=== PATIENT | female | born 1980 | race Hispanic/Latino ===

== ENCOUNTER → 2016-02-23 | Outpatient (CLI) | payer OTHER ==
--- NOTE | 2016-02-24 13:58 | DI ---
History: Second trimester obstetrical check. Prior study 12/07/15 Findings: Amniotic fluid volume appears adequate. age parameters based on BPD, HC, a.c., FL on close agreement, aggregate 20 weeks 2 days, by jory es, 20 weeks 4 days recorded. heart rate 147 beats per minute. Estimated weight 341 g, 20th percentile. Presentation is transverse, maternal left side. Placenta is posterior and somewhat low in position. No overt evidence of previa identified, however. Cervical length 8.2 cm per the internal cervical os and endocervical canal is visualized. The anatomy shows normal calvaria, no evidence of ventriculomegaly. No evidence of nuchal thick ening is seen. The spine appears normal. Heart appears normal. The liver, kidneys, are normal without ascites or ventral wall abnormality. Extremities are unremark able to extent depicted. Normal three-vessel cord with normal insertion site. Normal appearing face without visible evidence of cleft palate. Impression: Placenta is posteriorly oriented without previa or abruption. The lowest cotyledon is in close proximity to the internal cervical os and may be checked again after 4-6 weeks. age parameters close agreement at 20 weeks 2 days. Other details mentioned above
== END ==
LOC: US 08:51
PROVIDERS: ATTEND Student in an Organized Health Care Education/Training Program
DX: Z36 Encounter for antenatal screening of mother (principal); Z34.82 Encounter for supervision of other normal pregnancy, second trimester; Z3A.20 20 weeks gestation of pregnancy
CPT/HCPCS: 76805

== ENCOUNTER → 2016-04-18 | Outpatient (CLI) | payer OTHER ==
[2016-04-18 09:14] LABS: BASOPHILS # (AUTO) 0.02 10*3/UL; BASOPHILS % (AUTO) 0.3 % (0-1); EOSINOPHILS % (AUTO) 0.4 % (0-8); HEMATOCRIT 35.4 % (37.0-47.0); HEMOGLOBIN 11.8 g/dL (12.0-16.0); IMM GRAN % (AUTO) 0.1 % (0-5); IMM GRAN# (AUTO) 0.01 10*3/UL; LYMPHOCYTES # (AUTO) 1.47 10*3/uL; LYMPHOCYTES % (AUTO) 18.8 % (10-50); MEAN CORPUSCULAR HEMOGLOBIN 29.9 PG (27-31); MEAN CORPUSCULAR HGB CONC 33.3 g/dL (33-37); MEAN PLATELET VOLUME 9.5 FL (7.4-12.2); MONOCYTES # (AUTO) 0.27 10*3/UL (0.3-0.8); MONOCYTES % (AUTO) 3.5 % (5-15); NEUTROPHILS # (AUTO) 6.01 10*3/UL; NEUTROPHILS % (AUTO) 76.9 % (50-80); RDW COEFFICIENT OF VARIATION 14.1 % (11.5-14.5); RED BLOOD COUNT 3.95 10^6/uL (4.20-5.40); WHITE BLOOD COUNT 7.81 10^3/uL (4.8-10.8)
[2016-04-18 09:18] LABS: PLATELET MORPHOLOGY COMMENT NORMAL MORPHOLOGY (NORM)
== END ==
LOC: LAB 07:58
PROVIDERS: ATTEND Student in an Organized Health Care Education/Training Program
DX: Z34.93 Encounter for supervision of normal pregnancy, unspecified, third trimester (principal); Z3A.28 28 weeks gestation of pregnancy
CPT/HCPCS: 36415; 82950; 85025

== ENCOUNTER → 2016-05-10 | Outpatient (CLI) | payer OTHER ==
--- NOTE | 2016-05-10 12:09 | DI ---
US OB , LIMITED,05/10/2016 8:28 AM: Clinical History: Low lying placenta. Previous Exam: February 23, 2016 Findings: Multiple grayscale and color Doppler sonographic images are obtained through the pelvis demonstrating a single live intrauterine gestation in vertex presentation. Amniotic fluid level is normal subjecti vely. The placenta is posterior and grade 1. The cervix is long and closed measuring 5.7 cm in length. The placenta is approximately 1.2 cm from the internal cervical os. Detected Doppler heart tones measured 147 beats per minute. Impression: 1. The placenta is still marginal lying approximately 1.2 cm from the internal cervical os.
== END ==
LOC: US 08:26
PROVIDERS: ATTEND Student in an Organized Health Care Education/Training Program
DX: O44.43 Low lying placenta NOS or without hemorrhage, third trimester (principal); Z3A.31 31 weeks gestation of pregnancy
CPT/HCPCS: 76815

== ENCOUNTER → 2016-06-14 | Outpatient (CLI) | payer OTHER | LOC: MOB LAB 08:50 | PROVIDERS: ATTEND Student in an Organized Health Care Education/Training Program | DX: Z36 Encounter for antenatal screening of mother (principal); Z3A.36 36 weeks gestation of pregnancy | CPT/HCPCS: 87150 ==

== ENCOUNTER → 2016-06-24 | Outpatient (CLI) | payer OTHER ==
--- NOTE | 2016-06-27 13:37 | DI ---
US OB , LIMITED,06/24/2016 9:58 AM: Clinical History: Uterine size/date discrepancy. Previous Exam: May 10, 2016 Findings: Multiple grayscale and color Doppler sonographic images are obtained through the pelvis demonstrating a single live intrauterine gestation in vertex presentation. Amniotic fluid level is normal (14.1 cm ). There is spontaneous motion identified. Detected Doppler heart tones measure 144 beats per minute. There is normal respiratory motion. The umbilical artery Dopplers demonstrate SD ratios of between 2.4 and 2.9. Estimated gestational age was determined by a composite of biparietal diameter, head circumference, a bdominal circumference, and femur length yielding an estimated gestational age by ultrasound of 34 we eks 6 days. The biparietal diameter, head circumference and femur length are all less than the 2nd pe rcentile. Estimated weight is 2555 g (6 percentile). Impression: Single live intrauterine gestation with size less than dates. Growth rate has decreased since the exa mination on February 23, 2016.
== END ==
LOC: US 09:55
PROVIDERS: ATTEND Student in an Organized Health Care Education/Training Program
DX: O26.843 Uterine size-date discrepancy, third trimester (principal); Z3A.37 37 weeks gestation of pregnancy
CPT/HCPCS: 76815

== ENCOUNTER 2016-06-27 10:39 | Outpatient (CLI) | payer OTHER ==
[2016-06-27 15:15] VITALS: RESP 18; TEMP 98.7
--- NOTE | 2016-06-28 09:05 | PDOC(PROG) ---
Intake - - Reason for Visit/Chief Complaint: NST Admitted From: Home - Estimated Due Date: 07/09/16 Gestational Age in Weeks and Days: 38 Weeks and 3 Days Maternal - Vital Signs Last Taken Vital Signs: Vital Signs - Last Taken Temperature 98.7 F 06/27/16 11:00 Pulse Rate 69 06/27/16 11:00 Respiratory Rate 18 06/27/16 11:00 Blood Pressure 114/64 06/27/16 11:00 Pulse Ox 98 06/27/16 11:00 - Uterine Activity Uterine Contraction Monitor Mode: External Contraction Frequency(minutes): x2 Contraction Duration (seconds): 70 Uterine Contraction Pattern: Irregular Uterine Tone Measurement Phase: Resting Uterine Contraction Intensity: Mild - Vaginal Discharge Vaginal Bleeding Amount: None Vaginal Discharge Amount: Small Vaginal Discharge Odor: Odorless Vaginal Itching: No Monitoring - Uterine Activity Uterine Contraction Monitor Mode: External Contraction Frequency(minutes): x2 Contraction Duration (seconds): 70 Uterine Contraction Pattern: Irregular Uterine Tone Measurement Phase: Resting Uterine Contraction Intensity: Mild Assessment and Plan - Patient Problems (1) IUGR (intrauterine growth restriction) Status: AcuteSupport Text: U/s on Monday revealed EFW 6%ile, normal CARROLL, normal cord dopplers. NST reactive today Plan to repeat CARROLL, cord dopplers, NST on Monday Plan for IOL at 39 weeks
== END 2016-06-27 12:00 | disposition home or self-care (01) ==
LOC: OBOP 10:39
PROVIDERS: ATTEND Student in an Organized Health Care Education/Training Program
DX: O36.5930 Maternal care for other known or suspected poor fetal growth, third trimester, not applicable or unspecified (principal); Z3A.38 38 weeks gestation of pregnancy
CPT/HCPCS: 59025; 99211

== ENCOUNTER 2016-07-03 16:50 | Inpatient (IN) | payer OTHER ==
[2016-07-03] MEDS ORDERED: CALCIUM CARBONATE 500 MG (TUMS) CHEWABLE TABLET PO PRN (19:38)
[2016-07-03] MEDS ORDERED: LIDOCAINE W/ SODIUM BICARB 0.5 ML SYR SUBD PRN (19:38)
[2016-07-03] MEDS ORDERED: Carboprost Inj 250 MCG/ML AMP IM PRN (19:38)
[2016-07-03] MEDS ORDERED: NALOXONE 0.4 MG/1 ML VIAL IVP PRN (19:38)
[2016-07-03] MEDS ORDERED: Metoclopramide Inj 10 MG/2 ML VIAL IV PRN (19:38)
[2016-07-03] MEDS ORDERED: TERBUTALINE SULFATE 1 MG/1 ML SDV SUBCUT PRN (19:38)
[2016-07-03] MEDS ORDERED: Phenylephrine Inj 50 MCG in Normal Saline Flush 0.5 ML IVP PRN (19:38)
[2016-07-03] MEDS ORDERED: METHYLERGONOVINE MALEATE 0.2 MG/1 ML VIAL IM PRN (19:38)
[2016-07-03] MEDS ORDERED: MISOPROSTOL 200 MCG TABLET RECTAL PRN (19:38)
[2016-07-03] MEDS ORDERED: Naloxone Inj 0.01 MG in Normal Saline Flush 1 ML IVP PRN (19:38)
[2016-07-03] MEDS ORDERED: CefOXitin Inj 2 GM in Sodium Chloride 0.9% 100 ML IV PRN (19:38)
[2016-07-03] MEDS ORDERED: Famotidine Inj 20 MG in Normal Saline Flush 10 ML IVP PRN ×4 (19:38)
[2016-07-03] MEDS ORDERED: ONDANSETRON 4 MG/2 ML VIAL IVP PRN (19:38)
[2016-07-03] MEDS ORDERED: diphenhydrAMINE 50 MG/1 ML VIAL IVP PRN (19:38)
[2016-07-03] MEDS ORDERED: CITRIC ACID/SODIUM CITRATE 30 ML CUP PO PRN (19:38)
[2016-07-03] MEDS ORDERED: Nalbuphine Inj 20 MG/ML Ampule IVP PRN (19:38)
[2016-07-03] MEDS ORDERED: NORMAL SALINE 10 ML SYRINGE FLUSH IVP PRN (19:38)
[2016-07-03] MEDS ORDERED: OXYTOCIN 10 UNIT/1 ML IM PRN (19:38)
[2016-07-03] MEDS ORDERED: BUTORPHANOL TARTRATE 2 MG/1 ML VIAL IVP PRN (19:38)
[2016-07-03] MEDS ORDERED: Lidocaine 1% 10 MG/ML - 20 ML VIAL SUBCUT PRN (19:38)
[2016-07-03] MEDS ORDERED: ePHEDrine Inj 5 MG in Normal Saline Flush 1 ML IVP PRN (19:38)
[2016-07-03] MEDS ORDERED: Oxytocin 20 Units + LR 1,000 ML IV SCH ×2 (19:45→20:45)
[2016-07-03] MEDS: Lactated Ringers-OB Dept 1,000 ML PRIMARY IV SCH (20:26)
[2016-07-03] MEDS ORDERED: Misoprostol Tab 100 MCG TAB VAGINAL PRN (20:30)
--- NOTE | 2016-07-03 20:31 | OB.PROGRES ---
Interval History: 35 yo at 39 1/7 week gestation by LMP and 1st tri u/s admitted for IOL for IUGR. U/s on 06/24 revealed 6%ile for growth, 2555 grams, 14 CARROLL with normal cord dopplers. has been uncomplicated otherwise. She had cell free DNA testing that was low risk for trisomy 21, 18, 13. Normal 1 hour OGTT. GBS negative. OBHx - 11/08/11 - Delivered a 6 b 13 oz female (Kristen) at 40 4/7 weeks gestation via . Presented with SROM, did need pitocin to augment labor. 17 hours of labor. Epidural. Dr. Hernandez. MARIAA Christianson. GYNHx - Regular menses, usu 5 days. No h/o STIs. H/o abnormal pap smear 1997, +HPV s/p cryotherapy. Normal paps since then. Last 01/14/13 - normal. HPV testing not ordered. Did receive Gardasil series Meds - PNV Relpax - did take a 2 doses likely early on, has stopped using this PMH - Migraines - currently just using abortive therapy. No problems during either with migraines. 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 Never smoker. No etoh or illicit drug use. FH - Fa - HLD, MGF - Colon Cancer SEPIDEH FOB - Fa - lung cancer, former smoker, Mo - Benign brain tumor All - clindamycin Objective - Cervical Exam Cervical Exam: 360/-2, mid, soft per RN [place]: contractions q3+ mins, mild on palpation, irritability Heart Rate: baseline 130s, mod variability, accels, no decels Heart Rate Interpretation Category: Category I Assessment and Plan - Patient Problems (1) IUGR (intrauterine growth restriction) affecting care of mother Current Visit: Yes Status: Acute Qualifiers: Fetus number: single or unspecified fetus Trimester: third trimester Qualified Description: Poor growth affecting management of mother, third trimester, not applicable or unspecified fetus Qualifier Code(s): ( O36.5930) Maternal care for other known or suspected poor growth, third trimester, not applicable or unspecified Support Text: 35 yo at 39 1/7 weeks gestation, IUGR with growth 6%ile, admit for IOL. -Bishops score 8. Will start with low dose pitocin and titrate -GBS negative -Will want an epidural
[2016-07-03 20:51] LABS: HEMATOCRIT 35.5 % (37.0-47.0); HEMOGLOBIN 11.7 g/dL (12.0-16.0); MEAN CORPUSCULAR HEMOGLOBIN 28.9 PG (27-31); MEAN CORPUSCULAR VOLUME 87.7 FL (81-99); RED BLOOD COUNT 4.05 10^6/uL (4.20-5.40)
[2016-07-03 20:52] LABS: MEAN PLATELET VOLUME 11.5 FL (7.4-12.2)
--- NOTE | 2016-07-04 08:30 | OB.PROGRES ---
Interval History: 35 yo at 39 2/7 weeks gestation. Admitted last night for IOL for IUGR, was on low dose pit through the night and we started titrating up this morning. She did get some rest last night. Contractions are intensifying. Question of LOF through the night, unable to do amnisure 2/2 vaginal blood. Objective - Cervical Exam Cervical Exam: /-3 [place]: q2 mins Heart Rate: baseline 130, mod variability, +accels, -decels Heart Rate Interpretation Category: Category I - Labs CBC and BMP: 07/03/16 20:48 Labs - Last 24 Hours: Laboratory Results 07/03/16 Range/Units 20:48 WBC 6.56 (4.8-10.8) 10^3/uL RBC 4.05 L (4.20-5.40) 10^6/uL Hgb 11.7 L (12.0-16.0) g/dL Hct 35.5 L (37.0-47.0) % MCV 87.7 (81-99) FL MCH 28.9 (27-31) PG MCHC 33 (33-37) g/dL RDW Std Deviation 46.4 (39-50) fL RDW Coeff of Irene 14.9 H (11.5-14.5) % Plt Count 159 (140-350) 10*3/uL MPV 11.5 (7.4-12.2) FL - Vital Signs Last Taken Vital Signs: Vital Signs - Last Taken Temperature 98.0 F 07/04/16 06:15 Pulse Rate 55 L 07/04/16 07:30 Respiratory Rate 18 07/04/16 05:00 Blood Pressure 122/79 07/04/16 07:30 Pulse Ox 98 07/04/16 06:15 Assessment and Plan - Patient Problems (1) IUGR (intrauterine growth restriction) affecting care of mother Current Visit: Yes Status: Acute Qualifiers: Fetus number: single or unspecified fetus Trimester: third trimester Qualified Description: Poor growth affecting management of mother, third trimester, not applicable or unspecified fetus Qualifier Code(s): ( O36.5930) Maternal care for other known or suspected poor growth, third trimester, not applicable or unspecified Support Text: 35 yo at 39 2/7 weeks gestation admitted for IOL for IUGR -AROM just completed, clear fluid -Pitocin titrate as needed, will plan to place IUPC if needed but at this time contraction pattern looks good -Will eventually want an epidural -Continue close observation -GBS negative
[2016-07-04] MEDS: fentaNYL Inj 100 MCG/2 ML VIAL IV PRN ×2 (09:21→10:26)
[2016-07-04] MEDS: Lactated Ringers-OB Dept 1,000 ML PRIMARY IV SCH ×2 (09:45→20:21)
[2016-07-04] MEDS ORDERED: Fent/Bupiv 2mcg/0.0625% Epid 250 ML ONE (10:50)
--- NOTE | 2016-07-04 11:07 | CRNA.PROCE ---
Central Neuraxis Block Placemt - - Safety Measures: Time Out Taken, Site Verified - - Type of Block: Epidural Reason for Block: Analgesia Moniters Used During Block: SPO2, NIBP Skin Prep Used: Betadine Draped: Yes Skin Infiltration - Enter Amount Used in Comment Field: 1% Xylocaine (mL): Yes ( wheal L3-4) Introducer User: 18 Gauge Christine Local Anesthetic - Enter Amount Used in Comment Field: 1.5 % Xylocaine with Epinephrine 1:200,000 (mL): Yes (5ml test dose Neg) Number of Centimeters Catheter Threaded: 4 Bioclusive Dressing Applied: Yes - - Additional Details: Wishes epidural for JOSE. History obtained and chart reviewed. Discussed risks/ benefits and wishes to proceed. Sitting, landmarks, betadine prep and drape, skin wheal L3-4, #kaylitead passed and crisp [place] to saline first pass, cath 4cm without difficulty and 5ml test dose neg. Cath secured. PCEA started. Laboratory Results 07/03/16 Range/Units 20:48 WBC 6.56 (4.8-10.8) 10^3/uL RBC 4.05 L (4.20-5.40) 10^6/uL Hgb 11.7 L (12.0-16.0) g/dL Hct 35.5 L (37.0-47.0) % MCV 87.7 (81-99) FL MCH 28.9 (27-31) PG MCHC 33 (33-37) g/dL RDW Std Deviation 46.4 (39-50) fL RDW Coeff of Irene 14.9 H (11.5-14.5) % Plt Count 159 (140-350) 10*3/uL MPV 11.5 (7.4-12.2) FL Vital Signs (Last 8 hours) Temp Pulse Resp Resp BP Pulse Ox 07/04/16 10:56 98 07/04/16 10:54 18 07/04/16 10:45 73 18 117/70 96 07/04/16 09:45 56 L 103/65 07/04/16 09:30 68 128/65 07/04/16 09:15 59 L 117/75 07/04/16 09:00 104 H 142/54 07/04/16 08:45 58 L 132/77 07/04/16 08:30 54 L 115/74 07/04/16 08:15 62 133/71 07/04/16 08:00 62 116/84 07/04/16 07:45 62 124/59 07/04/16 07:30 55 L 122/79 07/04/16 07:15 65 119/72 07/04/16 07:00 61 122/78 07/04/16 06:45 60 131/77 07/04/16 06:30 55 L 125/77 07/04/16 06:15 98.0 F 57 L 116/65 98 07/04/16 05:00 98.7 F 60 18 126/78 98 07/04/16 03:30 65 135/77
[2016-07-04] MEDS ORDERED: fentaNYL 2 MCG/BUPIVACAINE 0.0625%/NS 0.9% 250 ML BAG EPIDURAL SCH (11:15)
--- NOTE | 2016-07-04 14:12 | OB.DEL.SUM ---
Delivery Note Delivery Summary: 35 yo G2 now P2 was admitted last night for IOL for IUGR. Last u/s revealed EFW of 6%ile. She was started on low dose pitocin last night, underwent AROM around 0800 with clear fluid. FHR tracing was category 1 through the night and morning. At the time I showed up to check on her around 12:50 she had just started having variable and late decelerations. Resuscitative measure were started, I checked her in anticipation of placing a FSE and found her to be complete and +2. The team was assembled and delivery table pulled into the room. After 2 contractions with pushing at 1302 she delivered via normal vaginal delivery a TAGA female infant in ROCCO position over an intact perineum with epidural anesthesia. No nuchal cord was noted. Her placenta delivered spontaneously, intact, with 3-vessel cord at 1305. She did have 2 periurethral lacerations that were hemostatic and did not require repair. She had a 2nd degree perineal laceration that was repaired with 3-0 vicryl rapide in standard fashion. EBL 250 cc. Mom and baby tolerated delivery well. Apgars 9, 9. - Patient Problems (1) IUGR (intrauterine growth restriction) affecting care of mother Current Visit: Yes Status: Acute Qualifiers: Fetus number: single or unspecified fetus Trimester: third trimester Qualified Description: Poor growth affecting management of mother, third trimester, not applicable or unspecified fetus Qualifier Code(s): ( O36.5930) Maternal care for other known or suspected poor growth, third trimester, not applicable or unspecified
[2016-07-04] MEDS ORDERED: CALCIUM CARBONATE 500 MG (TUMS) CHEWABLE TABLET PO PRN (14:41)
[2016-07-04] MEDS ORDERED: GLYCERIN/WITCH HAZEL 1 BOX TOPICAL PRN (14:41)
[2016-07-04] MEDS ORDERED: NORMAL SALINE 10 ML SYRINGE FLUSH IVP PRN (14:41)
[2016-07-04] MEDS ORDERED: OXYTOCIN 10 UNIT/1 ML IM ONE (14:41)
[2016-07-04] MEDS ORDERED: Ondansetron ODT Tab 4 MG TAB PO PRN (14:41)
[2016-07-04] MEDS ORDERED: Oxytocin 20 Units + LR 1,000 ML IV SCH (14:41)
[2016-07-04] MEDS ORDERED: HYDROcodone-APAP 5 MG -325 MG TABLET PO PRN (14:41)
[2016-07-04] MEDS ORDERED: ACETAMINOPHEN 325 MG TABLET PO PRN (14:41)
[2016-07-04] MEDS ORDERED: METHYLERGONOVINE MALEATE 0.2 MG/1 ML VIAL IM PRN (14:41)
[2016-07-04] MEDS ORDERED: ONDANSETRON 4 MG/2 ML VIAL IVP PRN (14:41)
[2016-07-04] MEDS ORDERED: diphenhydrAMINE 50 MG/1 ML VIAL IVP PRN (14:41)
[2016-07-04] MEDS ORDERED: LANOLIN HPA 40 GM TUBE TOPICAL PRN (14:41)
[2016-07-04] MEDS ORDERED: Nalbuphine Inj 20 MG/ML Ampule IVP PRN (14:41)
[2016-07-04] MEDS ORDERED: diphenhydrAMINE 25 MG CAPSULE PO PRN (14:41)
[2016-07-04] MEDS ORDERED: MISOPROSTOL 200 MCG TABLET RECTAL ONE (14:41)
[2016-07-04] MEDS ORDERED: BENZOCAINE/MENTHOL SPRAY 56 GM BOTTLE TOPICAL PRN (14:41)
[2016-07-04] MEDS ORDERED: Carboprost Inj 250 MCG/ML AMP IM PRN (14:41)
[2016-07-04] MEDS ORDERED: Methylergonovine Tab 0.2 MG TAB PO PRN (14:41)
[2016-07-04] MEDS: IBUPROFEN 800 MG TABLET PO PRN (16:57)
[2016-07-04] MEDS: DOCUSATE 100 MG CAPSULE PO SCH (21:10)
[2016-07-05] MEDS: IBUPROFEN 800 MG TABLET PO PRN ×2 (00:28→08:23)
[2016-07-05 04:41] LABS: HEMATOCRIT 33.6 % (37.0-47.0); HEMOGLOBIN 10.7 g/dL (12.0-16.0); MEAN CORPUSCULAR HEMOGLOBIN 28.4 PG (27-31); MEAN CORPUSCULAR HGB CONC 31.8 g/dL (33-37); MEAN CORPUSCULAR VOLUME 89.1 FL (81-99); MEAN PLATELET VOLUME 11.5 FL (7.4-12.2); RED BLOOD COUNT 3.77 10^6/uL (4.20-5.40)
[2016-07-05] MEDS: DOCUSATE 100 MG CAPSULE PO SCH (08:23)
--- NOTE | 2016-07-05 08:59 | DCSUMMARY ---
Hospitalization Summary Admit Date: 07/03/16 Discharge Date: 07/05/16 Primary Diagnosis:: Normal Vaginal Delivery Delivery Type: Vaginal Hospital Course: 35 yo G2 now P2 admitted at 39 1/7 weeks gestation for IOL for IUGR. Infant was last measured at 6%ile on u/s, symmetric. Induction was started with low dose pitocin then AROM. She delivered at 1302 on 07/04/16 at 39 2/7 weeks gestation. Aside from rapid progression of labor at the end, delivery was uneventful. Apgars 9,9. Baby was AGA, 2810 grams. Patient had a second degree laceration that was repaired in routine fashion and some periurethral skid stark that were hemostatic and didn't need repaired. / Postop Complications: none apparent [place] Complications: none apparent Exam - Vitals Vital Signs: Vital Signs Temperature 98.7 F Temperature Source Oral Pulse Rate [Apical] 68 Pulse Rate [Pulse Oximeter] 62 Pulse Rate 63 Respiratory Rate [Bilateral 18 Lower Abdomen] Respiratory Rate 16 Blood Pressure [Right Arm] 117/70 Blood Pressure 124/64 Pulse Ox 98 Oxygen Delivery Method Room Air Height 5 ft 3 in Weight 142 lb - General General Appearance: POSITIVE: No Acute Distress, Cooperative - Eye Eye Exam: POSITIVE: Normal Appearance, EOMI, No Scleral Icterus - Neck Neck Exam: POSITIVE: Normal Inspection - Respiratory Respiratory Exam: POSITIVE: Clear to Auscultation - Bilaterally, Breathing Non Labored - Cardiovascular Cardiovascular Exam: POSITIVE: RRR - GI/Abdominal GI/Abdominal Exam: POSITIVE: Normal Bowel Sounds, Non Tender, Non Distended, Soft Additional GI/Abdominal Exam Details: Uterus firm at umbilicus - Extremities Extremities Exam: POSITIVE: No Edema Present, Negative Matteo's sign - Neurological Neurological Exam: POSITIVE: Alert, Oriented x 3 - Psychiatric Psychiatric Exam: POSITIVE: Normal Affect, Normal Mood - Integumentary Integumentary Exam: POSITIVE: Normal Color Patient Problems - Patient Problem List (1) IUGR (intrauterine growth restriction) affecting care of mother Current Visit: Yes Status: Acute Qualifiers: Fetus number: single or unspecified fetus Trimester: third trimester Qualified Description: Poor growth affecting management of mother, third trimester, not applicable or unspecified fetus Qualifier Code(s): ( O36.5930) Maternal care for other known or suspected poor growth, third trimester, not applicable or unspecified Support Text: 35 yo G2 now P2, PPD 1 s/p -Pain well controlled with Ibuprofen -Rxs for 800mg ibuprofen, docusate and norethindrone sent in (Instructed to start POP at 6 weeks pp) -F/u in September when I am back from maternity leave, sooner for any concerns. We specifically discussed f/u sooner for concerns for pp depression. -D/c to home today
[2016-07-05] MEDS ORDERED: Prenatal Multivitamin Tab 1 TAB TAB PO SCH (09:00)
--- NOTE | 2016-07-05 09:13 | CRNA.PROGR ---
Anesthesia Note Anesthesia Progress Note: Sitting up in bed. Has been ambulatory ad arcelia. Epidural cath dc'd previously by OB RN intact. She has no questions or concerns regarding her anesthetic course at this time. Laboratory Results 07/03/16 07/05/16 Range/Units 20:48 04:25 WBC 6.56 6.77 (4.8-10.8) 10^3/uL RBC 4.05 L 3.77 L (4.20-5.40) 10^6/uL Hgb 11.7 L 10.7 L (12.0-16.0) g/dL Hct 35.5 L 33.6 L (37.0-47.0) % MCV 87.7 89.1 (81-99) FL MCH 28.9 28.4 (27-31) PG MCHC 33 31.8 L (33-37) g/dL RDW Std Deviation 46.4 46.9 (39-50) fL RDW Coeff of Irene 14.9 H 14.9 H (11.5-14.5) % Plt Count 159 127 L (140-350) 10*3/uL MPV 11.5 11.5 (7.4-12.2) FL
[2016-07-05 13:38] VITALS: RESP 18; TEMP 98
== END 2016-07-05 14:45 | disposition home or self-care (01) | DRG 775 ==
LOC: OBIP 20:15
PROVIDERS: ADMIT Student in an Organized Health Care Education/Training Program; ATTEND Student in an Organized Health Care Education/Training Program
PROC: 10E0XZZ Delivery of Products of Conception, External Approach (ICD-10-PCS; principal; 2016-07-04)
PROC: 0KQM0ZZ Repair Perineum Muscle, Open Approach (ICD-10-PCS; 2016-07-04)
DX: O36.5930 Maternal care for other known or suspected poor fetal growth, third trimester, not applicable or unspecified (principal); Z3A.39 39 weeks gestation of pregnancy; Z37.0 Single live birth; O70.1 Second degree perineal laceration during delivery
CPT/HCPCS: 36415; 81003; 85027; J3010; J3490; J7120